=== PATIENT | male | born 1985 | race Caucasian/White ===

== ENCOUNTER 2017-07-13 12:21 | Emergency (ER) | END 2017-07-14 01:25 ==

== ENCOUNTER 2018-07-17 16:27 | Emergency (ER) | payer SELFPAY ==
[~2018-07-17] VITALS: Wt 80.0 kg
[2018-07-17 16:30] VITALS: BP 134/63; PULSE 99; RESP 18
--- NOTE | 2018-07-17 17:52 | ERD ---
ER Documentation Chief Complaint Chief Complaint cough x 6 day, with phlem HPI Patient is a 33 years old male with past medical history of hepatitis-c and pneumonia diagnosed in March presenting for hemoptysis since Thursday. Patient admits to cough, fever, chills, night sweats, green sputum production, throat pain started a week ago that has mostly resolved. Patient states that the hemoptysis has not resolved and is getting worse with each day. Patient admits to being in long term around May and had some symptoms. Admits to smoking cigarettes 1 pack/day and new onset chest pain with cough. ROS All systems reviewed and are negative except as per history of present illness. Medications Home Meds Active Scripts Methylprednisolone* (Medrol* DOSE PACK) 4 Mg/Dose-Pack Tab.ds.pk, 4 MG PO . DIRECTED for 5 Days, #1 PACKET Prov:MACO RENNER PA-C 07/17/18 Albuterol Sulfate* (Proair HFA*) 8.5 Gm Hfa.aer.ad, 2 PUFF INH Q4, #1 INHALER Prov:MACO RENNER PA-C 07/17/18 Azithromycin* (Azithromycin*) 250 Mg Tablet, 500 MG PO ONCE for 3 Days, #3 TAB Prov:MACO RENNER PA-C 07/17/18 Allergies Allergies: Coded Allergies: No Known Allergy (Unverified , 07/13/17) PMhx/Soc History of Surgery: Yes (CYST REMOVED(BACK) 2014) Anesthesia Reaction: No Hx Neurological Disorder: No Hx Respiratory Disorders: No Hx Cardiac Disorders: No Hx Psychiatric Problems: No Hx Miscellaneous Medical Probl: No Hx Alcohol Use: Yes Hx Substance Use: Yes (HEROIN) Hx Tobacco Use: Yes Smoking Status: Never smoker Physical Exam Vitals Vital Signs Date Temp Pulse Resp B/P (MAP) Pulse Ox O2 O2 Flow FiO2 Time Delivery Rate 07/17/18 98.1 99 18 134/63 99 16:30 (86) Physical Exam Const: No acute distress Head: Atraumatic Eyes: Normal Conjunctiva ENT: Normal External Ears, Nose and Mouth. Severe oropharyngeal erythema with white lesion on uvula. Neck: Full range of motion. No meningismus. Resp: Diminished breath sounds bilaterally. Cardio: Regular rate and rhythm, no murmurs Neur: Awake and alert Psych: Normal Mood and Affect Procedures/MDM Patient was seen and evaluated for hemoptysis possible strep throat. CXR showed Subtle increased interstitium noted in the right lower lobe posteromedially (possible bronchiectasis vs infiltrate). Strep A negative. Patient is stable and ready for discharge. Patient was given azithromycin 500 mg p.o. daily X 3 days, pro-air HFA, Medrol Dosepak. Patient advised to take OTC cough syrup. Departure Diagnosis: Primary Impression: Bronchiectasis Bronchiectasis type: with acute lower respiratory infection Qualified Codes: J47.0 - Bronchiectasis with acute lower respiratory infection Condition: Stable Patient Instructions: Bronchiectasis Referrals: [facility] Additional Instructions: Patient advised to return to the ED immediately for new or worsening symptoms. Patient advised to follow up with primary care provider in the next 24-48 hours. Patient verbalized understanding and agrees with treatment plan and course of action. If patient has no primary care they may follow up with [facility] [address] [place] [id number] or [facility] [address] [place] [address] or [facility] [address] [place] [address] MACO RENNER PA-C Jul 17, 2018 17:52
[2018-07-17] MEDS ORDERED: MED4DP PO (18:36)
[2018-07-17] MEDS ORDERED: ALBU8.5H8 INH (18:36)
[2018-07-17] MEDS ORDERED: AZIT250T13 PO (18:36)
== END 2018-07-17 18:55 | disposition home or self-care (01) ==
LOC: FTE 16:27
DX: J47.0 Bronchiectasis with acute lower respiratory infection (principal); Z87.891 Personal history of nicotine dependence
CPT/HCPCS: 71046; 87880

== ENCOUNTER 2018-12-05 12:28 | Emergency (ER) | payer OTHER ==
[~2018-12-05] VITALS: Ht 172.7 cm; Wt 95.0 kg
[~2018-12-05 12:28] MED LIST: ALBU8.5H8 INH; AZIT250T13 PO; IBUP800T48 PO; MED4DP PO
[2018-12-05 12:35] VITALS: BP 134/68; PULSE 109; RESP 20; Ht 172.7 cm; Wt 95.0 kg
[2018-12-05] MEDS: IBUPROFEN 800 MG TAB PO ONE ×2 (14:58→14:59)
== END 2018-12-05 16:49 | disposition home or self-care (01) ==
LOC: FTE 12:28
DX: S90.31XA Contusion of right foot, initial encounter (principal); Y30.XXXA Falling, jumping or pushed from a high place, undetermined intent, initial encounter; Z87.891 Personal history of nicotine dependence
CPT/HCPCS: 73630; Z7502; Z7610